=== PATIENT | female | born 1995 | race Two or more races ===

== ENCOUNTER 2016-12-21 16:00 | Emergency (ER) | payer OTHER ==
[2016-12-21 16:05] VITALS: BP 120/85; PULSE 98; TEMP 98.2; BMI 28.0
--- NOTE | 2016-12-21 17:12 | PDOC ---
History of Present Illness - General Chief Complaint: Urinary Problem Stated Complaint: REVISIT, URINARY PROBLEM, needs new prescription Time Seen by Provider: 12/21/16 17:02 History Source: Patient Exam Limitations: No Limitations - History of Present Illness Travel History: No Initial Comments: 12/21/16 17:06 Agent is returned with continued complaints of pain and burning with urination, frequency. Was seen and treated here on the 12th, 6 days ago and treated with Bactrim which reveals on the microbiology culture as resistant to Escherichia coli which is the infectious organism. Patient denies rigors or chills, states has some mild nausea and some mild back pain. Quality: reports: mild, moderate Past History - Travel Traveled outside of the country in the last 30 days: No Close contact w/someone who was outside of country & ill: No - Past Medical History Allergies/Adverse Reactions: Allergies Allergy/AdvReac Type Severity Reaction Status Date / Time No Known Allergies Allergy Verified 12/21/16 16:05 Home Medications: Ambulatory Orders Nitrofurantoin Macrocrystal [Macrodantin -] 100 mg PO BID #14 capsule 12/21/16 Phenazopyridine HCl [Pyridium -] 200 mg PO PC #12 tablet 12/21/16 Other medical history: denies - Psycho/Social/Smoking Cessation Hx Suicidal Ideation: No Smoking History: Never smoked Number of Cigarettes Smoked Daily: 0 Information on smoking cessation initiated: No Hx Alcohol Use: No Drug/Substance Use Hx: No Substance Use Type: None Review of Systems - Review of Systems Able to Perform ROS?: Yes Is the patient limited Ma[place] proficient: Yes Constitutional: Yes: Symptoms Reported, See HPI, Malaise. No: Chills HEENTM: No: Symptoms Reported Respiratory: No: Symptoms reported Integumentary: Yes: Symptoms Reported Neurological: Yes: Symptoms reported All Other Systems: Reviewed and Negative *Physical Exam - Vital Signs Last Vital Signs Temp Pulse Resp BP Pulse Ox 98.2 F 98 H 17 120/85 99 12/21/16 16:03 12/21/16 16:03 12/21/16 16:03 12/21/16 16:03 12/21/16 16:03 - Physical Exam General Appearance: Yes: Nourished, Appropriately Dressed, Apparent Distress HEENT: positive: DEANDRE, TMs Normal Neck: positive: Supple, Lymphadenopathy (R), Lymphadenopathy (L). negative: Tender Respiratory/Chest: positive: Lungs Clear, Normal Breath Sounds Gastrointestinal/Abdominal: positive: Normal Bowel Sounds, Soft. negative: Tender Extremity: positive: Normal Capillary Refill, Normal Range of Motion Integumentary: positive: Normal Color, Dry, Warm Neurologic: positive: department clinician II-XII NML intact, Fully Oriented, Alert, Normal Mood/ Affect, Normal Response, Motor Strength 5/5 Progress Note - Progress Note Progress Note: Urinary tract infection persists/recurrent. Microbiology report from previous UA reveals a resistance to sofa therefore we'll change to Macrodantin which shows a sensitivity with the Escherichia coli infection. Given first dose here, and 1 dose of Pyridium *DC/Admit/Observation/Transfer Diagnosis at time of Disposition: Urinary tract infection Qualifiers: Urinary tract infection type: acute cystitis Hematuria presence: without hematuria Qualified Code(s): N30.00 - Acute cystitis without hematuria - Discharge Dispostion Disposition: HOME Condition at time of disposition: Stable Admit: No - Patient Instructions Printed Discharge Instructions: DI for Urinary Tract Infection (UTI) Additional Instructions: Rest, drink lots of fluids: Teas, water, soups Avoid contact with others until fevers and symptoms resolved Lots of handwashing and good hygiene Continue [id number] medications for symptomatic relief Tylenol or Motrin for fever and pain Continue all of antibiotics until completed Followup with private physician in one week for repeat urinalysis/reevaluation Return to emergency department for worsened symptoms, fevers, dehydration - Post Discharge Activity Work/School Note: Back to Work
[2016-12-21] MEDS ORDERED: NITROFURANTOIN MACROCRYSTAL 50 MG CAPSULE (FP) PO SCH (17:15)
[2016-12-21] MEDS ORDERED: NITROFURANTOIN MACROCRYSTAL 50 MG CAPSULE (FP) ONE (17:17)
[2016-12-21] MEDS ORDERED: PHENAZOPYRIDINE HCL 100 MG TABLET (FP) ONE (17:18)
[2016-12-21] MEDS ORDERED: PHENAZOPYRIDINE HCL 100 MG TABLET (FP) PO ONE (17:23)
== END 2016-12-21 17:37 | disposition home or self-care (01) ==
LOC: JERFT 16:00
DX: N30.00 Acute cystitis without hematuria (principal)
CPT/HCPCS: 99281-25